=== PATIENT | male | born 1940 | race Two or more races ===

== ENCOUNTER 2017-11-25 20:54 | Emergency (ER) | payer BC, MEDICARE ==
[~2017-11-25] VITALS: Ht 170.2 cm; Wt 77.1 kg
[~2017-11-25 20:54] MED LIST: ASPI-1169 PO; BLOOD PRESSURE MED
--- NOTE | 2017-11-25 21:15 | NUR ---
PT PRESENTED TO THE ER WITH A C/O HIGH BP. PT AMBULATED TO BED #12 WITH A STEADY GAIT. PT IS ON THE MONITOR AND CONTINUOUS PULSE OX.
--- NOTE | 2017-11-25 21:25 | NUR ---
MICHAEL, [employer] HELPER AT THE BEDSIDE FOR BLOOD DRAW.
[2017-11-25 21:40] LABS: BASOPHILS # (AUTO) 0.1 /CMM (0.0-0.2); EOSINOPHILS % (AUTO) 3.5 % (0.0-6.0); HEMATOCRIT 45 % (39-51); HEMOGLOBIN 15.3 g/dL (13.5-17.5); LYMPHOCYTES # (AUTO) 5.8 /CMM (0.8-4.8); LYMPHOCYTES % (AUTO) 58.2 % (20.0-44.0); MEAN CORPUSCULAR HEMOGLOBIN 32 PG (26.0-33.0); MEAN CORPUSCULAR HGB CONC 34 g/dl (31.0-36.0); MEAN CORPUSCULAR VOLUME 93 fL (80-96); MONOCYTES # (AUTO) 0.5 /CMM (0.1-1.30); MONOCYTES % (AUTO) 5.4 % (2.0-12.0); NEUTROPHILS # (AUTO) 3.1 /CMM (1.8-8.9); NEUTROPHILS % (AUTO) 31.9 % (43.0-81.0); PLATELET COUNT (AUTO) 164 /CMM (150-450); RDW COEFFICIENT OF VARIATION 12.7 (11.5-15.0); RED BLOOD CELL COUNT(AUTO) 4.78 MIL/uL (4.5-6.0); WHITE BLOOD COUNT (AUTO) 9.8 K/uL (4.3-11.0)
[2017-11-25 21:50] LABS: CALCIUM, SERUM 9.4 mg/dL (8.5-10.1); CARBON DIOXIDE 29 mmol/L (21-32); CHLORIDE 105 mmol/L (98-107); GLUCOSE 100 mg/dL (74-106); POTASSIUM 3.6 mmol/L (3.5-5.1); SODIUM SERUM 140 mmol/L (136-145); UREA NITROGEN, BLOOD 18 mg/dL (7-18)
[2017-11-25 21:56] LABS: ALANINE AMINOTRANSFERASE 27 U/L (12-78); ALBUMIN 3.8 g/dL (3.4-5.0); ALKALINE PHOSPHATASE 47 U/L (46-116); ASPARTATE AMINOTRANSFERASE 18 U/L (15-37); BILIRUBIN,DIRECT 0.1 mg/dL (0.0-0.2); BILIRUBIN,TOTAL 0.6 mg/dL (0.2-1.0); TOTAL PROTEIN, SERUM 7.2 g/dL (6.4-8.2)
[2017-11-25 21:58] LABS: TROPONIN I < 0.017 ng/mL (0.00-0.056)
[2017-11-25 22:01] LABS: INR 0.99 (0.85-1.15)
--- NOTE | 2017-11-26 01:38 | NUR ---
Patient discharged to home in stable condition. Written and verbal after care instructions given. Patient verbalizes understanding of instruction AND RX. PT AMBULATED OUT WITH A STEADY GAIT. IV removed. Catheter intact and site benign. Pressure and 4x4 applied to site. No bleeding noted.
[2017-11-26 02:36] VITALS: BP 143/88
== END 2017-11-26 01:38 | disposition home or self-care (01) ==
LOC: ER 20:55
DX: I10 Essential (primary) hypertension (principal); R07.9 Chest pain, unspecified; Z79.82 Long term (current) use of aspirin
CPT/HCPCS: 36415; 70450; 71045; 80048; 80076; 84484; 85025; 85730; 93005; 99285; A4606; Z7610

== ENCOUNTER 2018-05-09 14:43 | Outpatient (CLI) | payer MEDICARE, BC | END 2018-05-09 23:59 | disposition home or self-care (01) | LOC: LAB 14:43 | PROVIDERS: ATTEND Legal Medicine | DX: R82.90 Unspecified abnormal findings in urine (principal); I10 Essential (primary) hypertension ==